=== PATIENT | female | born 1930 | race Caucasian/White ===

== ENCOUNTER 2019-04-29 11:17 | Inpatient (IN) ==
[2019-04-29] MEDS ORDERED: CeFAZolin Syr 2,000MG/20 ML 2,000 MG/20 ML SYRINGE IVPB ONE (11:50)
[2019-04-29] MEDS: Ringers Solution, Lactated 1,000 ML IVC SCH ×2 (12:19→16:52)
[2019-04-29] MEDS: Albuterol 2.5 MG/3 ML NEBULIZER IH ONE ×2 (12:29→16:31)
[2019-04-29] MEDS ORDERED: Acetaminophen IV 1,000 MG/100 ML INFUS..BTL IVPB ONE (12:53)
[2019-04-29] MEDS ORDERED: Famotidine 20 MG/2 ML VIAL IVP ONE (12:53)
[2019-04-29] MEDS ORDERED: Ethanol\\Acetic Acid\\Na Ace\\Ben 1,000 ML IRRIG.SOLN IR ONE (14:15)
[2019-04-29] MEDS ORDERED: Ropivacaine/PF 0.5% 30 ML VIAL ONE (14:20)
[2019-04-29] MEDS ORDERED: Albumin Human 5% 0 GM/0 ML VIAL ONE (14:33)
[2019-04-29] MEDS ORDERED: Dexamethasone 4 MG/ML VIAL ONE (14:46)
[2019-04-29] MEDS ORDERED: *HR* FentaNYL (PF) 100 MCG/2 ML VIAL ONE ×2 (14:46→15:13)
[2019-04-29] MEDS ORDERED: *HR* Rocuronium Bromide 50 MG/5 ML VIAL ONE (14:46)
[2019-04-29] MEDS ORDERED: *HR* Propofol 200 MG/20 ML VIAL IVP ONE (14:46)
[2019-04-29] MEDS ORDERED: Lidocaine HCL 4 ML Topical Solution (Laryng-O-Jet Kit Sterile Pak) TP ONE (14:46)
[2019-04-29] MEDS ORDERED: *HR* Succinylcholine 200 MG/10 ML VIAL IVP ONE (14:46)
[2019-04-29] MEDS ORDERED: Lidocaine -MPF 2% 2 ML VIAL ONE (14:46)
[2019-04-29] MEDS ORDERED: Ondansetron 4 MG/2 ML VIAL ONE (14:46)
[2019-04-29] MEDS ORDERED: *HR* PHENYLEPHRINE 1,000 MCG/10 ML SYRINGE IVP ONE (15:07)
[2019-04-29] MEDS ORDERED: Albuterol 2.5 MG/3 ML NEBULIZER ONE (16:30)
[2019-04-29] MEDS ORDERED: Naloxone 0.4 MG/ML INJ IVP PRN (18:47)
[2019-04-29] MEDS ORDERED: Sennosides 8.6 MG TABLET PO PRN (18:47)
[2019-04-29] MEDS ORDERED: MOM Conc 10 ML UD.LIQ PO PRN (18:47)
[2019-04-29] MEDS ORDERED: Ondansetron 4 MG/2 ML VIAL IVP PRN (18:47)
[2019-04-29] MEDS ORDERED: Ringers Solution, Lactated 1,000 ML IVC SCH (18:47)
[2019-04-29 20:52] LABS: Hemoglobin 12.4 g/dL (11.5-15.4)
[2019-04-29] MEDS: Budesonide/Formoterol 80/4.5 1 PUFF INH IH SCH (21:35)
[2019-04-29] MEDS: ceFAZolin 2,000 MG in 0.9 % Sodium Chloride 100 ML IVPB SCH (22:08)
[2019-04-30] MEDS: Albuterol 2.5 MG/3 ML NEBULIZER IH PRN ×2 (00:29→08:05)
[2019-04-30] MEDS: *HR* LORazepam 0.5 MG TABLET PO PRN ×2 (01:39→13:56)
[2019-04-30 05:40] LABS: Hematocrit 33.6 % (35.3-44.9)
[2019-04-30] MEDS: ceFAZolin 2,000 MG in 0.9 % Sodium Chloride 100 ML IVPB SCH (05:43)
[2019-04-30 05:45] LABS: Hemoglobin 10.8 g/dL (11.5-15.4)
[2019-04-30 05:53] LABS: BUN/Creatinine Ratio 36 (6-26); Blood Urea Nitrogen 20 mg/dL (8-23); Calcium 8.2 mg/dL (8.6-10.3); Carbon Dioxide 25 mEq/L (23-29); Chloride 109 mEq/L (98-107); Glucose 157 mg/dL (70-105); Osmolality,Calculated 292 (280-300); Potassium 4.5 mEq/L (3.5-5.1); Sodium 138 mEq/L (136-145); eGFR For African Americans > 60 (> 60); eGFR For Non-African Americans > 60 (> 60)
[2019-04-30] MEDS: *HR* OxyCODONE Immed Rel 5 MG TABLET PO PRN ×2 (06:34→12:18)
[2019-04-30] MEDS: Budesonide/Formoterol 80/4.5 1 PUFF INH IH SCH ×2 (08:02→23:00)
[2019-04-30] MEDS: Tiotropium 18 MCG inhalation IH SCH (08:06)
[2019-04-30] MEDS ORDERED: Aspirin Enteric Coated 81 MG Tablet PO SCH (09:00)
[2019-04-30] MEDS: Aspirin Enteric Coated 81 MG Tablet PO SCH (09:18)
[2019-04-30] MEDS: Metoprolol XL (24 HR) Succ 25 MG TAB.ER.24H PO SCH (09:19)
[2019-04-30] MEDS: Furosemide 20 MG TABLET PO SCH (09:19)
[2019-04-30] MEDS: Cholecalciferol (D-3) 1,000 UNIT (25MCG) TABLET PO SCH (09:19)
[2019-04-30] MEDS: Cyanocobalamin (B-12) 1,000 MCG TABLET PO SCH (09:20)
[2019-04-30] MEDS: predniSONE 20 MG TABLET PO SCH (09:20)
[2019-04-30] MEDS: *HR* OxyCODONE/APAP 5/325 TABLET PO PRN (21:28)
[2019-05-01] MEDS: *HR* LORazepam 0.5 MG TABLET PO PRN ×2 (02:13→22:43)
[2019-05-01] MEDS: Albuterol 2.5 MG/3 ML NEBULIZER IH PRN ×3 (03:04→20:38)
[2019-05-01 05:48] LABS: Hematocrit 31.3 % (35.3-44.9); Hemoglobin 10.3 g/dL (11.5-15.4)
[2019-05-01 06:07] LABS: BUN/Creatinine Ratio 28 (6-26); Blood Urea Nitrogen 19 mg/dL (8-23); Carbon Dioxide 26 mEq/L (23-29); Chloride 104 mEq/L (98-107); Glucose 155 mg/dL (70-105); Osmolality,Calculated 289 (280-300); Potassium 4.2 mEq/L (3.5-5.1); Sodium 137 mEq/L (136-145); eGFR For African Americans > 60 (> 60); eGFR For Non-African Americans > 60 (> 60)
[2019-05-01] MEDS: Furosemide 20 MG TABLET PO SCH (08:04)
[2019-05-01] MEDS: Cyanocobalamin (B-12) 1,000 MCG TABLET PO SCH (08:04)
[2019-05-01] MEDS: Metoprolol XL (24 HR) Succ 25 MG TAB.ER.24H PO SCH (08:04)
[2019-05-01] MEDS: Aspirin Enteric Coated 81 MG Tablet PO SCH (08:04)
[2019-05-01] MEDS: predniSONE 20 MG TABLET PO SCH (08:05)
[2019-05-01] MEDS: Cholecalciferol (D-3) 1,000 UNIT (25MCG) TABLET PO SCH (08:05)
[2019-05-01] MEDS: *HR* OxyCODONE/APAP 5/325 TABLET PO PRN ×3 (08:11→20:14)
[2019-05-01] MEDS: Tiotropium 18 MCG inhalation IH SCH (10:57)
[2019-05-01] MEDS: Budesonide/Formoterol 80/4.5 1 PUFF INH IH SCH ×2 (11:00→20:38)
[2019-05-02] MEDS: Albuterol 2.5 MG/3 ML NEBULIZER IH PRN ×4 (03:13→23:17)
[2019-05-02] MEDS: *HR* OxyCODONE/APAP 5/325 TABLET PO PRN ×3 (04:11→20:02)
[2019-05-02] MEDS: Budesonide/Formoterol 80/4.5 1 PUFF INH IH SCH ×2 (07:33→19:19)
[2019-05-02] MEDS: Tiotropium 18 MCG inhalation IH SCH (07:33)
[2019-05-02] MEDS: Cyanocobalamin (B-12) 1,000 MCG TABLET PO SCH (09:04)
[2019-05-02] MEDS: Metoprolol XL (24 HR) Succ 25 MG TAB.ER.24H PO SCH (09:04)
[2019-05-02] MEDS: Aspirin Enteric Coated 81 MG Tablet PO SCH (09:05)
[2019-05-02] MEDS: predniSONE 20 MG TABLET PO SCH (09:05)
[2019-05-02] MEDS: *HR* LORazepam 0.5 MG TABLET PO PRN (09:05)
[2019-05-02] MEDS: Cholecalciferol (D-3) 1,000 UNIT (25MCG) TABLET PO SCH (09:05)
[2019-05-02] MEDS: Furosemide 20 MG TABLET PO SCH (09:06)
[2019-05-03 02:49] LABS: Hematocrit 30.8 % (35.3-44.9); Hemoglobin 10.2 g/dL (11.5-15.4)
[2019-05-03 02:56] LABS: BUN/Creatinine Ratio 30 (6-26); Blood Urea Nitrogen 18 mg/dL (8-23); Calcium 8.6 mg/dL (8.6-10.3); Carbon Dioxide 31 mEq/L (23-29); Chloride 100 mEq/L (98-107); Glucose 115 mg/dL (70-105); Osmolality,Calculated 287 (280-300); Potassium 4.2 mEq/L (3.5-5.1); Sodium 137 mEq/L (136-145); eGFR For African Americans > 60 (> 60); eGFR For Non-African Americans > 60 (> 60)
[2019-05-03] MEDS: Albuterol 2.5 MG/3 ML NEBULIZER IH PRN ×2 (03:29→07:20)
[2019-05-03 07:12] VITALS: BP 156/77
[2019-05-03] MEDS: Budesonide/Formoterol 80/4.5 1 PUFF INH IH SCH (07:20)
[2019-05-03] MEDS: Tiotropium 18 MCG inhalation IH SCH (07:21)
[2019-05-03] MEDS: Metoprolol XL (24 HR) Succ 25 MG TAB.ER.24H PO SCH (09:09)
[2019-05-03] MEDS: *HR* OxyCODONE/APAP 5/325 TABLET PO PRN ×2 (09:09→14:05)
[2019-05-03] MEDS: Cyanocobalamin (B-12) 1,000 MCG TABLET PO SCH (09:11)
[2019-05-03] MEDS: predniSONE 20 MG TABLET PO SCH (09:11)
[2019-05-03] MEDS: Cholecalciferol (D-3) 1,000 UNIT (25MCG) TABLET PO SCH (09:12)
[2019-05-03] MEDS: Furosemide 20 MG TABLET PO SCH (09:12)
[2019-05-03] MEDS: Aspirin Enteric Coated 81 MG Tablet PO SCH (09:12)
[2019-05-03] MEDS: *HR* LORazepam 0.5 MG TABLET PO PRN (14:05)
== END 2019-05-03 14:38 | DRG 483 ==
LOC: SAMDAY 11:17 → 3NENU 18:03
PROVIDERS: ADMIT Orthopaedic Surgery; ATTEND Orthopaedic Surgery